=== PATIENT | female | born 1955 | race Caucasian/White ===

== ENCOUNTER 2019-01-02 02:22 | Emergency (ER) | payer BC ==
--- NOTE | 2019-01-02 02:53 | ED Physician Documentation ---
PD HPI NVD - Stated complaint Stated Complaint: DIZZY,N,V,D - Chief complaint Chief Complaint: General - History obtained from History obtained from: Patient - History of Present Illness Timing - onset: How many days ago (1-2) Timing - duration: Days Timing - details: Gradual onset, Waxing and waning Associated symptoms: Fever (subjective (felt feverish but did not take temperature)). No: Abdominal pain Improved by: Other (no ameliorating factors) Worsened by: Other (no exacerbating factors) Similar symptoms before: Has not had sx before Recently seen: Not recently seen - Additonal information Additional information: c/o generalized LEO, nausea, vomiting, subjective fever with chills and sweats, diarrhea, dizziness that is worse with standing Review of Systems Constitutional: reports: Fever, Chills, Myalgias, Sweats Cardiac: reports: Reviewed and negative Respiratory: reports: Reviewed and negative GI: reports: Nausea, Vomiting, Diarrhea. denies: Abdominal Pain : denies: Dysuria, Frequency Neurologic: reports: Headache. denies: Generalized weakness, Focal weakness, Numbness PD PAST MEDICAL HISTORY - Past Medical History Past Medical History: No - Past Surgical History /[employer]: Breast implants, section - Present Medications Home Medications: Ambulatory Orders Medication Instructions Recorded Confirmed Ondansetron Odt [Zofran] 4 mg TL Q6H PRN #10 tablet 08/04/12 valACYclovir [Valtrex] 0 mg PO 08/04/12 08/04/12 Diphenoxylate/Atropine [Lomotil] 1 each PO QID PRN #10 tablet 01/02/19 Ondansetron Odt [Zofran] 4 mg TL Q6H PRN #10 tablet 01/02/19 - Allergies Allergies/Adverse Reactions: Allergies Allergy/AdvReac Type Severity Reaction Status Date / Time morphine Allergy Intermediate Itching Verified 08/04/12 14:28 amoxicillin [Amoxicillin] Allergy Cramps Verified 08/04/12 14:28 - Social History Does the pt smoke?: No Smoking Status: Never smoker Does the pt drink ETOH?: No Does the pt have substance abuse?: No - Immunizations Immunizations are current?: Yes PD ED PE NORMAL - Vitals Vital signs reviewed: Yes - General General: Alert and oriented X 3, No acute distress - HEENT HEENT: Other (tacky/pasty mucous membranes) - Neck Neck: Supple, no meningeal sign - Cardiac Cardiac: RRR, No murmur - Respiratory Respiratory: No respiratory distress, Clear bilaterally - Abdomen Abdomen: Soft, Non tender, Non distended - Derm Derm: Normal color, Warm and dry Results - Vitals Vitals: Oxygen O2 Source Room air - Labs Labs: Laboratory Tests 01/02/19 01/02/19 01/02/19 03:55 04:15 04:15 WBC 3.6 L RBC 3.70 L Hgb 11.8 L Hct 36.5 L MCV 98.6 MCH 31.9 H MCHC 32.3 RDW 12.3 Plt Count 107 L MPV 10.2 Neut # (Auto) 2.8 Lymph # (Auto) 0.4 L [place] # (Auto) 0.3 Eos # (Auto) 0.0 Baso # (Auto) 0.0 Absolute Nucleated RBC 0.00 Nucleated RBC % 0.0 Sodium 141 Potassium 3.3 L Chloride 106 Carbon Dioxide 29 Anion Gap 6.0 BUN 17 Creatinine 0.6 Estimated GFR (MDRD) 101 Glucose 117 H Calcium 8.2 L Total Bilirubin 0.7 AST 28 ALT 26 Alkaline Phosphatase 33 L Total Protein 6.1 L Albumin 3.7 Globulin 2.4 Albumin/Globulin Ratio 1.5 Lipase 29 Influenza A (Rapid) Negative Influenza B (Rapid) Negative PD MEDICAL DECISION MAKING - ED course Complexity details: reviewed results, re-evaluated patient, considered differential, d/w patient, d/w family ED course: patient reported significant improvement after IV fluids, zofran and lomotil. Leo resolved without other intervention. we discussed test results including her mild pancytopenia, and I recommended she seek f/u for this. She says she has had similar abnormalities before and has seen hem/onc, but she says her tests had normalized and thus no further testing nor appointments were recommended. she also is describing low WBC and platelets, but says her red cell levels had not been abnormal previously. this is likely a coincident finding unrelated to this ED presentation, but, again, I encouraged her to discuss these results with her doctor. Departure - Departure Disposition: 01 Home, Self Care Clinical Impression: Vomiting and diarrhea Condition: Good Instructions: ED Diet Vomiting Diarrhea, ED Vomiting Diarrhea Nonspecific Ad Prescriptions: Diphenoxylate/Atropine [Lomotil] 1 each PO QID PRN #10 tablet PRN Reason: Diarrhea Ondansetron Odt [Zofran] 4 mg TL Q6H PRN #10 tablet PRN Reason: Nausea / Vomiting Discharge Date/Time: 01/02/19 05:02
[2019-01-02] MEDS ORDERED: ONDANSETRON 4 MG/2 ML VIAL IVP STA (03:26)
[2019-01-02] MEDS ORDERED: SODIUM CHLORIDE 0.9% 1,000 ML IV STA (03:26)
[2019-01-02] MEDS ORDERED: DIPHENOX/ATROPINE 2.5/0.025 MG TABLET PO STA (03:27)
[2019-01-02 04:28] LABS: BASOPHILS % (AUTO) 0.6 %; EOSINOPHILS % (AUTO) 0.8 %; HGB - HEMOGLOBIN 11.8 g/dL (12.0-16.0); LYMPHOCYTES # (AUTO) 0.4 10^3/uL (1.5-3.5); LYMPHOCYTES % (AUTO) 11.8 %; MEAN CORPUSCULAR HEMOGLOBIN 31.9 pg (27.0-31.0); MEAN CORPUSCULAR HGB CONC 32.3 g/dL (32.0-36.0); MEAN CORPUSCULAR VOLUME 98.6 fL (81.0-99.0); MEAN PLATELET VOLUME 10.2 fL (7.9-10.8); MONOCYTES # (AUTO) 0.3 10^3/uL (0.0-1.0); MONOCYTES % (AUTO) 9.2 %; NEUTROPHILS # (AUTO) 2.8 10^3/uL (1.5-6.6); NEUTROPHILS % (AUTO) 77.3 %; PLT - PLATELET COUNT 107 10^3/uL (130-450); RED CELL DISTRIBUTION WIDTH 12.3 % (12.0-15.0); WHITE BLOOD COUNT 3.6 x10^3/uL (4.8-10.8)
[2019-01-02 04:40] LABS: ALBUMIN 3.7 g/dL (3.2-5.5); ALBUMIN/GLOBULIN RATIO 1.5 (1.0-2.2); BILIRUBIN,TOTAL 0.7 mg/dL (0.2-1.0); CALCIUM 8.2 mg/dL (8.5-10.3); CREATININE 0.6 mg/dL (0.4-1.0); TOTAL PROTEIN 6.1 g/dL (6.7-8.2)
[2019-01-02 05:31] VITALS: BP 109/67
== END 2019-01-02 05:02 | disposition home or self-care (01) ==
LOC: ED 02:22
DX: R11.2 Nausea with vomiting, unspecified (principal); R19.7 Diarrhea, unspecified; R42 Dizziness and giddiness; R51 Headache; D61.818 Other pancytopenia
CPT/HCPCS: 36415; 80053; 83690; 85025; 87275; 87276; 96361; 96374; 99283; A9270

== ENCOUNTER 2019-10-16 13:31 | Outpatient (CLI) | payer OTHER | END 2019-10-16 13:32 | disposition home or self-care (01) | LOC: COV 13:31 | PROVIDERS: ATTEND Family Medicine | DX: J02.9 Acute pharyngitis, unspecified (principal); R09.81 Nasal congestion; Z20.828 Contact with and (suspected) exposure to other viral communicable diseases ==

== ENCOUNTER 2020-02-07 11:04 | Outpatient (CLI) | payer OTHER | END 2020-02-07 11:05 | disposition home or self-care (01) | LOC: COV 11:04 | PROVIDERS: ATTEND Family Medicine | DX: R53.83 Other fatigue (principal); R07.0 Pain in throat; R09.81 Nasal congestion; J34.89 Other specified disorders of nose and nasal sinuses; Z20.828 Contact with and (suspected) exposure to other viral communicable diseases ==

== ENCOUNTER 2023-11-08 07:00 | Outpatient (CLI) | payer MEDICARE, BC | END 2023-11-08 23:59 | disposition home or self-care (01) | LOC: LAB.S 07:00 | PROVIDERS: ATTEND Physician Assistant Medical | DX: R30.0 Dysuria (principal); R10.2 Pelvic and perineal pain | CPT/HCPCS: 87086 ==